=== PATIENT | male | born 1985 | race Two or more races ===

== ENCOUNTER 2017-08-20 21:37 | Emergency (ER) | payer MEDICAID ==
[2017-08-21] MEDS: HYDROCODONE/APAP (10/325) TAB PO (01:03)
== END 2017-08-21 02:24 | disposition home or self-care (01) ==
LOC: FTE 21:37
DX: S40.011A Contusion of right shoulder, initial encounter (principal); S09.90XA Unspecified injury of head, initial encounter; V18.0XXA Pedal cycle driver injured in noncollision transport accident in nontraffic accident, initial encounter; Y92.9 Unspecified place or not applicable
CPT/HCPCS: 70450; 73030-RT; 99284-25